=== PATIENT | male | born 1940 | race Caucasian/White ===

== ENCOUNTER → 2017-03-18 | Outpatient (CLI) | END | disposition home or self-care (01) ==

== ENCOUNTER → 2017-04-14 | Outpatient (CLI) | END | disposition home or self-care (01) ==

== ENCOUNTER → 2017-04-19 | Outpatient (CLI) | END | disposition home or self-care (01) ==

== ENCOUNTER → 2018-06-10 | Outpatient (CLI) | payer MEDICARE, OTHER ==
[~2018-06-10] MED LIST: ASPI-535 PO; BICALUTAMIDE PO; COL625 PO; FURO40TA4 PO; HYDR-3498 PO; LACT10SO53 PO; LEVOTHYROXINE PO; OMEP20CA16 PO; SIMV20TA2 PO; TAMS-14 PO; VALS160T20 PO; ZOLP5TAB PO
--- NOTE | 2018-06-10 18:34 | RADRPT ---
Echocardiogram Report Patient Name: MARIAH MICHELEPatient ID: [id number] : 1940 (77y 10m)Study Date: 06/10/2018 10:13:28 AM Gender: MAccession #: [id number] Tech: Elly Franco RDCS Location: ekg Ref.Physician: MADDY DAS Height(Cm): BSA: Weight(Kg): Quality: AdequateAccount #: Procedures: Echocardiographic Report: Transthoracic echocardiogram with complete 2D, M-Mode, and doppler examination. Indications: Mitral Valve Disorder. Measurements: 2D/M Mode Doppler Measurement Value Normal Range Measurement Value Normal Range LVIDd 2D 4.6 [ 4.2 - 5.8 ] cm AV Peak Juancarlos 1.2 [ 100.0 - 170.0 ] cm/sec LVIDs 2D 3.4 [ 2.5 - 4.0 ] cm AV Peak PG 6.0 [ 2.0 - 9.0 ] mmHg LVPWd 2D 1.2 [ 0.6 - 1.0 ] cm LVOT Peak Juancarlos 0.5 [ 70.0 - 110.0 ] cm/sec IVSd 2D 1.2 [ 0.6 - 1.0 ] cm LVOT Peak PG 1.0 [ 2.0 - 6.0 ] mmHg IVS/LVPW 2D 1.0 ratio MV E Peak Juancarlos 0.6 [ 60.0 - 130.0 ] cm/sec AoR Diam 2D 3.0 [ 2.6 - 3.4 ] cm MV A Peak Juancarlos 1.0 [ 100.0 - 120.0 ] cm/sec LA/Ao 2D 2 ratio MV E/A 0.6 [ 0.8 - 1.5 ] ratio LA Dimen 2D 4.6 [ 3.0 - 4.0 ] cm MV Decel Time 165 [ 104 - 258 ] msec Lat E` Juancarlos 0.0 [ 10.0 - 15.0 ] cm/sec MV E/A 0.6 [ 0.8 - 1.5 ] ratio Findings: Left Ventricle: Normal left ventricular cavity size. Mild concentric left ventricular hypertrophy. Mild global left ventricular systolic dysfunction. Mild left ventricular systolic dysfunction. Ejection fraction is visually estimated at 40-45 %. Tissue Doppler/Mitral Doppler indices are consistent with impaired relaxation (Stage I diastolic dysfunction). Right Ventricle: Normal right ventricular size. Normal right ventricular systolic function. Left Atrium: There is moderate enlargement of left atrium. Right Atrium: The right atrium is normal in size. Mitral Valve: Mitral valve leaflets appear mildly thickened. Mild mitral annular calcification. Mild mitral valve regurgitation. Aortic Valve: No hemodynamically significant aortic stenosis by doppler. Aortic cusps appear mildly calcified. Mild aortic valve regurgitation. Tricuspid Valve: Normal appearance and function of the tricuspid valve with trace physiologic regurgitation. Normal right ventricular systolic pressure. Pulmonic Valve: Normal pulmonic valve appearance. There is trace pulmonic regurgitation. Pericardium: Normal pericardium with no significant pericardial effusion. Aorta: Normal aortic root. IVC: Normal size and normal respiratory collapse consistent with normal right atrial pressure. Conclusions: Normal left ventricular cavity size. Mild concentric left ventricular hypertrophy. Mild left ventricular systolic dysfunction. Ejection fraction is visually estimated at 40-45 %. Tissue Doppler/Mitral Doppler indices are consistent with impaired relaxation (Stage I diastolic dysfunction). There is moderate enlargement of left atrium. Mitral valve leaflets appear mildly thickened. Mild mitral annular calcification. Mild mitral valve regurgitation. No hemodynamically significant aortic stenosis by doppler. Aortic cusps appear mildly calcified. Mild aortic valve regurgitation. Normal appearance and function of the tricuspid valve with trace physiologic regurgitation. Normal right ventricular systolic pressure. Normal pulmonic valve appearance. There is trace pulmonic regurgitation. n. Electronically Signed By: Harvey Cruz 2018-06-10 18:33:19 PDT
== END | disposition home or self-care (01) ==
LOC: EKG 09:57
PROVIDERS: ATTEND Internal Medicine Interventional Cardiology
DX: M79.662 Pain in left lower leg (principal); M79.661 Pain in right lower leg; E11.9 Type 2 diabetes mellitus without complications
CPT/HCPCS: 93306; 93970